=== PATIENT | female | born 1975 | race Caucasian/White ===

== ENCOUNTER 2016-10-19 11:44 | Emergency (ER) | payer MEDICAID ==
[2016-10-19 12:15] VITALS: BP 150/93
--- NOTE | 2016-10-19 14:15 | ER ---
HISTORY OF PRESENT ILLNESS: A 41-year-old lady here with complaints of having headaches for about a week. She states that the headaches are controlled fairly well with ibuprofen, but without the Motrin-type products, she has noticed the headache can be severe. She has been taking 600 mg twice a day. She has also had some episodes of dizziness today and some blurred vision with the dizziness. The patient denies any falls or injuries. She states she has had history of dizziness 2 or 3 times previously. The patient further tells me that she was put on a different medication called trazodone about a week ago and she started getting the headache shortly after starting the trazodone. She also was just started on an antibiotic yesterday for an ear infection. OBJECTIVE: GENERAL APPEARANCE: The patient is awake and alert. She is in no respiratory distress. VITAL SIGNS: Reviewed. Blood pressure is a little elevated at 150/93. HEENT: Eyes, pupils are equal, round, and reactive to light. EOMs are intact. There is minimal lateral nystagmus bilaterally. Ears, TMs are bulging. The right TM is erythematous. The left TM has yellow mucus behind it. Nares are patent. Oral mucous membranes are moist. Tonsils not enlarged or injected. Pharynx not inflamed. NECK: Supple. LUNGS: Clear. SKIN: Warm and dry. NEUROLOGIC: Hallpike maneuver is slightly positive in the first attempt with the patient looking to the right. With the patient looking to the left on the next attempt, she did not have any dizziness at all. LAB AND X-RAY: CBC and CMP were done, lab results are basically normal. Chloride level slightly low at 86. Head CT was next obtained with negative for intracranial hemorrhage or edema. She does have opacifications of the right mastoid air cells correlating with the patient's otitis media. The patient does not have tenderness over the mastoid bone on the right side with palpation or percussion today. DIAGNOSES: Headache with dizziness. Part of this could be due to the trazodone. The dizziness could be some vertigo as well. TREATMENT PLAN: The patient was stopped using the trazodone. She is to continue with ibuprofen or Tylenol as needed for headaches and continue with her antibiotic. She should be following up next week with her primary care provider for recheck, sooner over the weekend if her symptoms should happen to get worse. CRS/MODL /[id number]
--- NOTE | 2016-10-21 08:11 | CT ---
Date of Service: 10/19/16 Clinical Data: Headaches x 1 week. Blurry vision today. UNENHANCED BRAIN CT Multislice acquisition through the brain without IV contrast was performed. No masses or mass effect. No intracranial hemorrhage. No evidence of acute or subacute infarct. There is clouding of mastoid air cells on the right consistent with mastoid disease. No other significant findings. IMPRESSION: No acute intracranial abnormalities. [id number] [facility]
== END 2016-10-19 13:20 | disposition home or self-care (01) ==
LOC: LB.ED 11:44
DX: R51 Headache (principal); R42 Dizziness and giddiness
CPT/HCPCS: 36415; 70450; 80053; 85025; 99284-25

== ENCOUNTER 2016-11-03 19:19 | Observation (INO) | payer MEDICAID ==
[2016-11-03] MEDS: LORazepam 2 MG/ML MDV IVPUSH SCH (22:45)
[2016-11-03] MEDS ORDERED: Haloperidol Lactate 5 MG/ML SDV IM ONE (22:56)
[2016-11-03] MEDS ORDERED: Sodium Chloride 0.9% 1,000 ML IV SCH (23:00)
--- NOTE | 2016-11-03 23:53 | ER ---
HISTORY OF PRESENT ILLNESS: A 41-year-old lady who comes in with mental health issues. She is brought in by her son and her mother. The patient is not answering questions. She is not making eye contact. She sits on the bed and looks down or she lays down and closes her eyes. Family members tell me that she has not been doing well the last 3 or 4 days. She has not been sleeping hardly at all. She has been very active. She has been loud. She has not been eating well. She has not been going to work. 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 The patient does have some history of bipolar issues and alcoholism, but they feel she has been dry as far as alcohol for a while. Current medications include trazodone, ibuprofen, Trileptal, Zyprexa, and Lexapro. Family is not sure if the patient has been taking her medications. OBJECTIVE: GENERAL APPEARANCE: The patient is in no respiratory distress. She is very uncomfortable. She goes between faking that she is sleeping with her eyes closed to jumping up and stating she has to leave. She will be mad. She will start to cry. She will be sad. She will swear and she goes between these different emotions every minute or 2. She tells me she is going to leave. She keeps making statements that "they got me and they will find out, I cannot play this game anymore, it is too hard." The patient does not make eye contact with myself or nursing staff at anytime. Multiple times she tried to leave, but family members persuade her into staying and helps her back to the cot. At this point, Mental Health was consulted and did an evaluation. The patient in acute psychosis, and she needs to be placed on a 72-hour hold. We will attempt to find placement for her at this time, with facility pending at this time. LABORATORY RESULTS: Include a CBC, which is normal. A CMP has a low sodium level of 125, low chloride level of 87. UA is unremarkable. Urine drug screen is positive for THC, ETOH is 0.0. Addendum; While waiting for placement pt was given ativan 2 mg IV. This calmed her enough to sleep. NS was given IV. Her re check NA is 128. CRS/MODL /[id number] JASPAL
[2016-11-04] MEDS: Sodium Chloride 0.9% 1,000 ML IV SCH ×2 (00:13→08:08)
[2016-11-04] MEDS: LORazepam 2 MG/ML MDV IVPUSH SCH ×2 (05:33→11:00)
[2016-11-04] MEDS ORDERED: OXCARBAZEPINE 300 MG PO SCH (08:00)
[2016-11-04] MEDS ORDERED: OLANZAPINE 10 MG PO SCH (08:00)
[2016-11-04] MEDS ORDERED: ESCITALOPRAM 10 MG PO SCH (08:00)
[2016-11-04] MEDS ORDERED: Nicotine 21 MG/24 Hr Patch TRDERM ONE (09:02)
[2016-11-04 13:15] VITALS: BP 136/76
--- NOTE | 2016-11-04 15:28 | PN ---
DATE OF VISIT: 11/04/2016 SUBJECTIVE: A 41-year-old lady who came in last evening in acute psychosis. We are unable to find placement for her for a 72-hour hold last night. Therefore, she was admitted to observation overnight. The patient was given 2 mg of Ativan IV as well as IV fluids bolus of 1 L followed by an ongoing infusion of 125 mL/h. The Ativan calm the patient down to the point where she was able to sleep. She is now more compliant. She does answer questions in a polite fashion by saying ok to every question. She still cries a lot and wants to lay in bed with her eyes closed even when she is not sleeping. This morning, labs were rechecked revealing her sodium level improved. It is now 128 and her chloride is corrected at 93. Arrangements were made for the patient to be admitted for 72-hour hold at [facility] in [place] and the patient will be transferred by ambulance to their facility. She did eat dinner here today quite well. She is still teary-eyed and crying often when she left. She did take some of her medications this morning including Zyprexa and she did have 3 doses of Ativan. The last dose was about 11 o'clock this morning. DIAGNOSIS: Acute psychosis. CRS/MODL /[id number] JASPAL
[2016-11-04] MEDS ORDERED: Non-Formulary Medication 1 Each (Trazodone [Trazodone] 50 MG) PO SCH (20:00)
== END 2016-11-04 12:40 ==
LOC: LB.ED 19:19 → LB.MS 22:43 → UNDOADMOB 22:57 → UNDODISOB 11-04 12:40
PROVIDERS: ADMIT Physician Assistant; ATTEND Physician Assistant
DX: F23 Brief psychotic disorder (principal); Z79.899 Other long term (current) drug therapy
CPT/HCPCS: 36415; 80048; 80053; 80307; 81001; 84443; 85025; 96361; 96372; 96374; 96376; 99285; A0425; A0429; A9270; G0378; G0480; J2060; J7040; J7050

== ENCOUNTER 2016-11-13 11:38 | Emergency (ER) | payer MEDICAID ==
[2016-11-13 12:03] VITALS: BP 145/81
[2016-11-13] MEDS ORDERED: LORazepam 1 MG Tab PO ONE ×2 (12:25→14:12)
[2016-11-13] MEDS ORDERED: LORazepam 1 MG Tab ONE ×2 (12:27→14:13)
--- NOTE | 2016-11-13 16:12 | CR ---
DATE OF SERVICE: 11/13/16 CLINICAL DATA: wheeze PA AND LATERAL CHEST The heart size is normal. The lungs are clear. No pneumothorax. No pleural effusions. No areas of consolidation. The exam is otherwise negative. IMPRESSION: No evidence of acute intrathoracic disease. [id number] [facility]
--- NOTE | 2016-11-13 21:33 | ER ---
CHIEF COMPLAINT: The patient enters with a chief complaint of requesting detox from methamphetamines. HISTORY OF PRESENT ILLNESS: Patient is a 41-year-old woman, recently seen in the ER on 10/30/2016 for acute psychosis. At that time, a 72-hour hold was placed on her. She was sent to [facility] for inpatient care. There they changed her psychiatric medicines. They put her on Cogentin 1 mg at bedtime, lithium 300 mg three tabs at bedtime, Desyrel 100 mg at bedtime, and Latuda 60 mg at supper. Unfortunately, her Latuda was not covered and she did not fill that medication. Her psychiatrist has filed an appeal for it. In the meantime, she is going without medication and seems to have decompensated. Yesterday, her son reports that she was cleaning her room, found a old crack pipe and was smoking her amphetamines. She also uses marijuana and though she denies it, she does use alcohol as well. She has a past medical history of bipolar disease and active hepatitis C that has not been treated. In the emergency room, she was adamant that she was willing to seek detox. We called for her to be admitted for detox and by the time they got back to us, she decided that she did not want to have detox and that she would call [facility] on her own and I did give them the phone number. In the meantime, for her anxiety she received 2 mg of Ativan p.o. in the emergency room. I discharged her on six 1 mg Ativan tablets to take p.r.n. anxiety. She will follow up with her psychiatrist through telemedicine as already scheduled and hopefully she will be able to receive her psychiatric medications soon, so that she does not fall through again. The patient tells me that she is not going to continue with smoking her methamphetamines. She says she has not had alcohol for quite a while and she thinks she will beat the amphetamines as well. Family was not happy that we could not hold the patient against her will as the patient is alert, oriented, and rational. OBJECTIVE: GENERAL: The patient is well developed, well nourished, alert, oriented x3. She is in no acute distress. VITAL SIGNS: Her blood pressure is 145/81, her oxygen saturation on room air is 100%, her pulse is 77 and is regular. SKIN: Shows no rashes or sores. HEENT: Eyes show EOMI, PERRLA. Throat is clear with poor dentition. Ears show normal TMs bilaterally. She does have some inflammation in her right ear canal from aggressive Q-tip use. There is no cody blood present. Nose is clear. HEART: Shows regular rate and rhythm. No murmurs, rubs, or gallops. No S3, no S4. LUNGS: Clear. ABDOMEN: Soft. Bowel sounds x4. No mass, no tenderness. BACK: Shows no CVA or cord tenderness. EXTREMITIES: Show no clubbing, cyanosis, or edema. Her joints are not acutely inflamed. She has full range of motion intact of all extremities. NEURO: Shows cranial nerves II through XII intact. Her exam is nonfocal. She is alert, awake, and appropriate. She did have some diffuse wheezes bilaterally. No accessory muscle use. No rales, no rhonchi, and because of the wheezing we did the chest x-ray. LAB RESULTS: CBC was performed and was normal. Electrolytes were normal. Blood sugar was normal. Liver functions were normal. Drug screen by urine was positive for THC and methamphetamines. Urine was negative for . Chest x-ray was done and was clear. EKG was done and showed normal sinus rhythm, occasional PAC. ASSESSMENT: 1. Bipolar disease. 2. Methamphetamine use. 3. Use of THC. 4. Alcoholism, in remission. 5. Tobacco abuse and wheezing. 6. Hepatitis C, active. PLAN: The patient was discharged to home. She will follow up on her own for inpatient detox. She was given the number for the detox. She will receive Ativan 1 mg p.o. q.6 hours p.r.n., 6 tabs, for any breakthrough anxiety. DARCY/ELIZABETH /[id number] JASPAL
== END 2016-11-13 15:20 | disposition home or self-care (01) ==
LOC: LB.ED 11:38
DX: F31.9 Bipolar disorder, unspecified (principal); F15.90 Other stimulant use, unspecified, uncomplicated; F10.21 Alcohol dependence, in remission; F12.90 Cannabis use, unspecified, uncomplicated; F17.200 Nicotine dependence, unspecified, uncomplicated
CPT/HCPCS: 36415; 71020; 80053; 80307; 81025; 85027; 93005; 99285; A9270

== ENCOUNTER 2017-06-14 10:37 | Emergency (ER) | payer MEDICAID ==
--- NOTE | 2017-06-14 12:43 | ER ---
HISTORY OF PRESENT ILLNESS: A 41-year-old lady who comes in with her son because of problems with drug abuse. He tells me that he thinks she has been using meths for the last several days since approximately Saturday and she is not doing well. She has agreed to going in for detox. The patient tells me that she has not been aggressive, she has been quiet today, and almost like she is in a trans. The patient has not been sick recently. She has not been running a fever. She was just seen yesterday in the clinic in [facility] with Telemedicine and was cooperative at that time. OBJECTIVE: GENERAL APPEARANCE: The patient is awake, she is alert, she has her head down, she is not answering questions at this time. No respiratory distress. The patient occasionally will answer a question, most of the time she does not. VITAL SIGNS: Reviewed, they are normal. CARDIAC: Heart sounds distinct without murmurs. LUNGS: Clear. SKIN: Warm and dry. LABORATORY DATA: Labs today include a CBC, which is normal. Comprehensive metabolic panel was also unremarkable. ETOH is negative. Urine tox screen is pending. DIAGNOSIS: Drug abuse with possible early stages of withdrawal. TREATMENT PLAN: With coaching, the patient was able to get up and give us a urine sample very recently. Arrangements have been made for the patient to go to a detox center and she will be transported by ground ambulance to this facility today. Over the course of monitoring the patient for about an hour and a half, she is becoming more responsive, she is not aggressive, but in light of past behavior and potential for an increase in aggressiveness, she will be given Ativan 2 mg IM before leaving our facility. KAILEY/MODL /[id number]
[2017-06-14] MEDS ORDERED: LORazepam 2 MG/ML MDV IM ONE (12:48)
[2017-06-14 13:23] VITALS: BP 138/81
[2017-06-14] MEDS ORDERED: LORazepam 2 MG/ML MDV ONE (13:30)
== END 2017-06-14 15:00 ==
LOC: LB.ED 10:37
DX: F19.10 Other psychoactive substance abuse, uncomplicated (principal)
CPT/HCPCS: 36415; 80053; 80307; 85025; 96372; 99284; G0480; J2060

== ENCOUNTER 2019-03-31 12:45 | Emergency (ER) | payer MEDICAID ==
[2019-03-31 13:39] VITALS: BP 119/88; PULSE 85
[2019-03-31] MEDS ORDERED: LORazepam 2 MG/ML SDV IVPUSH ONE (14:00)
[2019-03-31] MEDS ORDERED: LORazepam 2 MG/ML SDV ONE (14:11)
--- NOTE | 2019-03-31 14:47 | EDM.PDOC ---
ED HPI GENERAL MEDICAL PROBLEM - General Time Seen by Provider: 03/31/19 12:50 Source of Information: Reports: Patient History Limitations: Reports: No Limitations - History of Present Illness INITIAL COMMENTS - FREE TEXT/NARRATIVE: According to patient she claims she has been weak and feeling short of breath since yesterday. Shortness of breath started yesterday and has progressively got worse today. No chest pain or wheezing. Pt is very anxious and hyperventilating in the emergency room. Her SPO2 is 100%.Feels weak and tired. No fever or chills. No nausea or vomiting. No diarrhea. Pt has been progressively loosing weight over the past few months now. She was diagnosed with left sided infective neck mass, for which she has been on IM Rocephin daily at the hospital. Onset Date: 03/31/19 Onset Time: 13:00 Severity: Moderate Improves with: Reports: None Worsens with: Reports: None Associated Symptoms: Reports: Shortness of Breath, Weakness. Denies: Confusion , Chest Pain, Cough, Diaphoresis, Fever/Chills, Nausea/Vomiting, Rash, Seizure, Syncope - Related Data Allergies Allergy/AdvReac Type Severity Reaction Status Date / Time No Known Allergies Allergy Verified 03/13/19 15:31 Home Meds: Home Meds [place] Carbonate 900 mg PO DAILY 11/13/16 [History] Ibuprofen 600 mg PO TID PRN 06/14/17 [History] Lurasidone HCl [Latuda] 60 mg PO DAILY 06/14/17 [History] OLANZapine [Olanzapine] 20 mg PO BEDTIME 06/14/17 [History] OXcarbazepine [Oxcarbazepine] 900 mg PO BID 06/14/17 [History] Sofosbuvir/Velpatasvir [Epclusa 400 mg-100 mg Tablet] 100 - 400 mg PO DAILY [History] traZODone 150 mg PO BEDTIME MDD 300mg 06/14/17 [History] Past Medical History HEENT History: Reports: Other (See Below) Other HEENT History: recent ear infection Gastrointestinal History: Reports: Chronic Constipation, 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: Psychiatric History: Reports: Anxiety, Bipolar, Depression - Infectious Disease History Infectious Disease History: Reports: Hepatitis C - Past Surgical History Other HEENT Surgeries/Procedures: Patient not answering questions GI Surgical History: Reports: Bariatric Procedure Female Surgical History: Reports: Section Musculoskeletal Surgical History: Reports: Other (See Below) Social & Family History - Family History Family Medical History: Noncontributory - Caffeine Use Caffeine Use: Reports: Coffee ED ROS GENERAL - Review of Systems Review Of Systems: See Below Constitutional: Denies: Fever, Chills HEENT: Denies: Ear Pain, Rhinitis, Throat Pain Respiratory: Reports: Shortness of Breath. Denies: Pleuritic Chest Pain, Cough , Sputum Cardiovascular: Denies: Chest Pain, Lightheadedness Endocrine: Denies: Fatigue GI/Abdominal: Denies: Abdominal Pain, Nausea, Vomiting : Denies: Dysuria, Frequency Musculoskeletal: Denies: Joint Pain, Joint Swelling Skin: Denies: Bruising, Pruritis, Rash Neurological: Denies: Confusion, Dizziness, Headache, Numbness, Tingling Psychiatric: Denies: Agitation, Anxiety, Confusion, Cravings, Depression ED EXAM, GENERAL - Physical Exam Exam: See Below Exam Limited By: No Limitations General Appearance: Alert, WD/WN, Anxious Ears: Normal External Exam, Normal Canal, Hearing Grossly Normal, Normal TMs Ear Exam: Bilateral Ear: Auricle Normal, Canal Normal, TM normal Nose: Normal Inspection, Normal Mucosa, No Blood Throat/Mouth: Normal Inspection, Normal Lips, Normal Teeth, Normal Gums, Normal Oropharynx, Normal Voice, No Airway Compromise Head: Atraumatic, Normocephalic Neck: Supple, Non-Tender, Full Range of Motion, Other (There is a obvious firm to hard 2cm by 1cm irregulr mass felt at the right angle of the mandible.) Respiratory/Chest: No Respiratory Distress, Lungs Clear, Normal Breath Sounds, No Accessory Muscle Use, Chest Non-Tender Cardiovascular: Normal Peripheral Pulses, Regular Rate, Rhythm, No Edema, No Gallop, No JVD, No Murmur, No Rub GI/Abdominal: Normal Bowel Sounds, Soft, Non-Tender, No Organomegaly, No Distention, No Abnormal Bruit, No Mass Back Exam: Normal Inspection, Full Range of Motion, NT Extremities: Normal Inspection, Normal Range of Motion, Non-Tender, Normal Capillary Refill, No Pedal Edema Neurological: Alert, Oriented, CN II-XII Intact, Normal Cognition Psychiatric: Anxious Skin Exam: Warm, Intact Course - Vital Signs Text/Narrative:: Pt presents to emergency room with shortness of breath since yesterday. No fever or chills. She has been chronically loosing weight over past few months. Pt has had right sided neck pain and has been treated with Rocpehin outpatient for the past 2 wks now. On clinical exam she does have a right upper neck firm mild tender mass just inferior to the right angle of mandible. Pt is very anxious and hyperventilating in the emergency room.It is hard to make decision as she is hyperventilating or has acute sepsis form the neck infection. Hence, baseline LAbs were ordered. Her CBC show elevated white count of 20K with 92% neutrophils. Blood culture and lactic acid was ordered to pursue infective pathology. Also CT neck and chest were ordered. Her D-dimer is mild elevated at 600, which might be inflammatory or reactive change, but considering her Shortness of breath Chest Ct was ordered without contrast due to her Low GFR. Her CMP stable other then her Creat of 1.87. Troponin is negative. Pt's Lactic acid is elevated at 2.75. Her CT neck shows 3 cm right para- pharyngeal mass,and Chest CT shows b/l pneumonia. I was discussing the findings with patient and her family. Pt started to appear lethargic and her breath sounds started to slow down and shallow. Apparently patient started to loose consciousness and was only arousable to deep pain stimulus. At which point it was planned was RSI. Pt was intubated with first attempt using Boogie. 7 number ET tube was intubated to 24 cms. Good Colorimeter changes. Equal breath sound. Post intubation Xray shows tip at gume. Pt did receive 1 gm of vancomycin. I did contact Dr. Goff the buck swamper at [facility] and discuss patient with her. Dr. Goff requested zosyn 3.325gm IV one dose. which ws ordered. [facility] air ambulance ready for transfer. Pt has been transferred in hemodynamically stable condition to [facility] . Further care per Dr. Goff. Last Recorded V/S: Last Vital Signs Temp 98.2 F 03/31/19 13:36 Pulse 85 03/31/19 13:36 Resp 60 H 03/31/19 13:36 BP 119/88 03/31/19 13:36 Pulse Ox 100 03/31/19 13:36 - Orders/Labs/Meds Orders: Active Orders 24 hr Category Date Time Status Chest wo Cont [CT] Stat Exams 03/31/19 13:09 Ordered Soft Tissue Neck wo Cont [CT] Stat Exams 03/31/19 13:08 Taken CULTURE BLOOD [BC] Stat Lab 03/31/19 14:15 Received LACTIC ACID [CHEM] Stat Lab 03/31/19 13:20 Received Labs: Laboratory Tests 03/31/19 03/31/19 03/31/19 Range/Units 13:20 13:20 13:20 WBC 20.0 H D (4.0-11.0) K/uL RBC 2.64 L (3.80-5.80) M/uL Hgb 10.6 L (11.5-16.5) g/dL Hct 30.9 L (37.0-47.0) % MCV 117 H (76-96) fL MCH 40.2 H (27.0-32.0) pg MCHC 34.3 (31.0-35.0) g/dL RDW 15.9 (11.0-16.0) % Plt Count 232 D (150-500) K/uL MPV 10.4 H (6.0-10.0) fL Neut % (Auto) 92.1 H (45.0-70.0) % Lymph % (Auto) 2.9 L (20.0-40.0) % [place] % (Auto) 4.9 (3.0-10.0) % Eos % (Auto) 0.0 L (1.0-5.0) % Baso % (Auto) 0.1 (0.0-0.5) % Neut # (Auto) 18.46 H (2.00-7.50) K/uL Lymph # (Auto) 0.58 L (1.50-4.00) K/uL [place] # (Auto) 0.98 H (0.20-0.80) K/uL Eos # (Auto) 0.00 L (0.04-0.40) K/uL Baso # (Auto) 0.02 (0.02-0.10) K/uL D-Dimer, Quantitative 608 H (0-400) ng/mL Sodium 135 L (136-145) mmol/L Potassium 3.5 (3.5-5.1) mmol/L Chloride 92 L (98-107) mmol/L Carbon Dioxide 6.6 L* D (21.0-32.0) mmol/L Anion Gap 39.9 H (5.0-15.0) mmol/L BUN 10 D (8-26) mg/dL Creatinine 1.87 H D (0.55-1.02) mg/dL Est Cr Clr Drug Dosing 33.68 mL/min Estimated GFR (MDRD) 30 L (>60) MLS/MIN BUN/Creatinine Ratio 5.3 L (6-25) Glucose 120 H D (74-100) mg/dL Calcium 9.3 (8.5-10.1) mg/dL Total Bilirubin 1.0 (0.0-1.0) mg/dL AST 81 H (15-37) U/L ALT 49 (12-78) U/L Alkaline Phosphatase 230 H (46-116) U/L Total Protein 7.7 (6.4-8.2) g/dL Albumin 3.5 (3.4-5.0) g/dL Globulin 4.2 (2.2-4.2) g/dL Albumin/Globulin Ratio 0.8 (0.8-2.0) Meds: Medications Discontinued Medications Generic Name Dose Route Start Last Admin Trade Name Freq PRN Reason Stop Dose Admin Lorazepam Confirm 03/31/19 14:11 Ativan Administered 03/31/19 14:12 Dose 2 mg .ROUTE .STK-MED ONE Departure - Departure Time of Disposition: 16:10 Disposition: DC/Tfer to Acute Hospital 02 Condition: Fair Clinical Impression: Parapharyngeal space mass, Pneumonia of both lower lobes, Respiratory failure, Sepsis - Discharge Information *PRESCRIPTION DRUG MONITORING PROGRAM REVIEWED*: Not Applicable *COPY OF PRESCRIPTION DRUG MONITORING REPORT IN PATIENT LILLY: Not Applicable Referrals: PCP,None [Primary Care Provider] - - Problem List & Annotations (1) Parapharyngeal space mass SNOMED Code(s): 384933947 Code(s): R22.1 - LOCALIZED SWELLING, MASS AND LUMP, NECK Status: Acute Current Visit: Yes (2) Pneumonia of both lower lobes SNOMED Code(s): 623255698, 767716232 Code(s): J18.1 - LOBAR PNEUMONIA, UNSPECIFIED ORGANISM Status: Acute Current Visit: Yes (3) Respiratory failure SNOMED Code(s): 320707146 Code(s): J96.90 - RESPIRATORY FAILURE, UNSP, UNSP W HYPOXIA OR HYPERCAPNIA Status: Acute Current Visit: Yes (4) Sepsis SNOMED Code(s): 78061692 Code(s): A41.9 - SEPSIS, UNSPECIFIED ORGANISM Status: Acute Current Visit : Yes - Problem List Review Problem List Initiated/Reviewed/Updated: Yes - My Orders Last 24 Hours: My Active Orders 03/31/19 13:08 Soft Tissue Neck wo Cont [CT] Stat 03/31/19 13:09 Chest wo Cont [CT] Stat 03/31/19 13:20 LACTIC ACID [CHEM] Stat 03/31/19 14:15 CULTURE BLOOD [BC] Stat - Assessment/Plan Last 24 Hours: My Active Orders 03/31/19 13:08 Soft Tissue Neck wo Cont [CT] Stat 03/31/19 13:09 Chest wo Cont [CT] Stat 03/31/19 13:20 LACTIC ACID [CHEM] Stat 03/31/19 14:15 CULTURE BLOOD [BC] Stat Assessment:: Sepsis B/l pneumonia Right parapharyngeal mass Respiratory failure Plan: Pt presents to emergency room with shortness of breath since yesterday. No fever or chills. She has been chronically loosing weight over past few months. Pt has had right sided neck pain and has been treated with Rocpehin outpatient for the past 2 wks now. On clinical exam she does have a right upper neck firm mild tender mass just inferior to the right angle of mandible. Pt is very anxious and hyperventilating in the emergency room.It is hard to make decision as she is hyperventilating or has acute sepsis form the neck infection. Hence, baseline LAbs were ordered. Her CBC show elevated white count of 20K with 92% neutrophils. Blood culture and lactic acid was ordered to pursue infective pathology. Also CT neck and chest were ordered. Her D-dimer is mild elevated at 600, which might be inflammatory or reactive change, but considering her Shortness of breath Chest Ct was ordered without contrast due to her Low GFR. Her CMP stable other then her Creat of 1.87. Troponin is negative. Pt's Lactic acid is elevated at 2.75. Her CT neck shows 3 cm right para- pharyngeal mass,and Chest CT shows b/l pneumonia. I was discussing the findings with patient and her family. Pt started to appear lethargic and her breath sounds started to slow down and shallow. Apparently patient started to loose consciousness and was only arousable to deep pain stimulus. At which point it was planned was RSI. Pt was intubated with first attempt using Boogie. 7 number ET tube was intubated to 24 cms. Good Colorimeter changes. Equal breath sound. Post intubation Xray shows tip at gume. Pt did receive 1 gm of vancomycin. I did contact Dr. Goff the buck swamper at [facility] and discuss patient with her. Dr. Goff requested zosyn 3.325gm IV one dose. which ws ordered. [facility] air ambulance ready for transfer. Pt has been transferred in hemodynamically stable condition to [facility] . Further care per Dr. Goff.
[2019-03-31] MEDS ORDERED: Sodium Chloride 0.9% 1,000 ML IV SCH (15:15)
[2019-03-31] MEDS ORDERED: Succinylcholine 200 MG/10 ML MDV IV SCH (15:20)
[2019-03-31] MEDS ORDERED: Midazolam 1 MG/ML 10 ML MDV IVPUSH ONE (15:20)
[2019-03-31] MEDS ORDERED: Propofol 200 MG/20 ML SDV ONE (15:30)
--- NOTE | 2019-03-31 15:54 | CT ---
DATE OF SERVICE: 03/31/2019 CLINICAL DATA: Neck mass with shortness of breath Unenhanced neck CT: Multislice acquisition through the neck without IV contrast was performed. Comparison is made to prior unenhanced neck CT dated 03/09/2019. Motion artifact degrades image quality. The parotid glands are symmetric and appears normal. The submandibular glands are symmetric and appear normal. The thyroid gland appears normal. There is a soft tissue mass in the right parapharyngeal space lateral to the nasopharynx and soft palate. It was not present on prior study. It measures 3 cm axially. This most likely represents adenopathy. Infectious or inflammatory processes should be considered. Malignant processes cannot be excluded. No other significant findings. The visualized paranasal sinuses are clear. No osseous abnormalities. The visualized lung apices are clear. Impression: Abnormal exam. See above MTDD
--- NOTE | 2019-03-31 18:17 | CR ---
Date of Service: 03/31/19 Clinical Data: CHECK TUBE PLACEMENT AP PORTABLE CHEST: Comparison is made to a prior exam dated 02/10/19. There is an endotracheal tube in place with its distal tip just above the gume. The heart size is normal. There are poorly defined ground-glass opacities in both lower lungs and in the right upper lung suspicious for pneumonia. No pneumothorax. No pleural effusions. [id number] [facility]
--- NOTE | 2019-04-01 07:32 | CT ---
Date of Service: 03/31/2019 Clinical Data: Shortness of breath. UNENHANCED CHEST CT: Multislice acquisition through the chest without IV contrast was performed. Motion artifact degrades image quality. There are poorly defined ground glass opacities noted in both right upper lobes , within the right middle lobe, and in both lower lobes consistent with pneumonia/pneumonitis. No pleural effusion. No pneumothorax. The heart size is normal. There is mild prominence of the ascending aorta. It measures 3.7 cm in diameter. No hilar or mediastinal adenopathy. The thyroid gland appears enlarged. No other significant findings. [id number] [facility]
== END 2019-03-31 16:10 ==
LOC: LB.ED 12:45
DX: A41.9 Sepsis, unspecified organism (principal); R65.20 Severe sepsis without septic shock; J96.90 Respiratory failure, unspecified, unspecified whether with hypoxia or hypercapnia; R22.1 Localized swelling, mass and lump, neck; J18.1 Lobar pneumonia, unspecified organism; F41.9 Anxiety disorder, unspecified; F32.9 Major depressive disorder, single episode, unspecified; Z79.899 Other long term (current) drug therapy
CPT/HCPCS: 31500; 36415; 70490; 71045; 71250; 80053; 83605; 84484; 85025; 85379; 87040; 96361; 96365; 96375; 99285-25; J0330; J2060; J2250; J2543; J2704; J3370; J3490; J7030; J7050

== ENCOUNTER 2019-04-19 13:50 | Emergency (ER) | payer MEDICAID ==
[2019-04-19] MEDS ORDERED: Lidocaine 4% Top Soln 50 ML Bottle ONE (14:20)
--- NOTE | 2019-04-19 15:09 | EDM.PDOC ---
ED HPI GENERAL MEDICAL PROBLEM - General Chief Complaint: ENT Problem Stated Complaint: sore mouth Time Seen by Provider: 04/19/19 14:00 Source of Information: Reports: Patient History Limitations: Reports: No Limitations - History of Present Illness INITIAL COMMENTS - FREE TEXT/NARRATIVE: Pt is a 43 year old female who is on Iv antibiotic therapy for parapharyngeal abscess presently. She presents to emergency room with painful mouth sore. She claims the sore are behind her lips , tongue and buccal cavity. They are painful and sting when she tires to eat . Even hurts to touch them with her tongue. No fever or chills. No swelling or painful swallowing. pt has been treated for oral thrush with nystatin for past 1 wk now. Onset: Gradual Onset Date: 04/16/19 Location: Reports: Other (mouth) Quality: Reports: Ache Severity: Moderate Improves with: Reports: None Worsens with: Reports: None Associated Symptoms: Denies: Confusion, Chest Pain, Cough, Diaphoresis, Fever/ Chills, Nausea/Vomiting, Rash, Seizure, Weakness - Related Data Allergies Allergy/AdvReac Type Severity Reaction Status Date / Time No Known Allergies Allergy Verified 03/13/19 15:31 Home Meds: Home Meds [place] Carbonate 900 mg PO DAILY 11/13/16 [History] Ibuprofen 600 mg PO TID PRN 06/14/17 [History] Lurasidone HCl [Latuda] 60 mg PO DAILY 06/14/17 [History] OLANZapine [Olanzapine] 20 mg PO BEDTIME 06/14/17 [History] OXcarbazepine [Oxcarbazepine] 900 mg PO BID 06/14/17 [History] Sofosbuvir/Velpatasvir [Epclusa 400 mg-100 mg Tablet] 100 - 400 mg PO DAILY [History] traZODone 150 mg PO BEDTIME MDD 300mg 06/14/17 [History] Past Medical History HEENT History: Reports: Other (See Below) Other HEENT History: recent ear infection Gastrointestinal History: Reports: Chronic Constipation, 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: Psychiatric History: Reports: Anxiety, Bipolar, Depression - Infectious Disease History Infectious Disease History: Reports: Hepatitis C - Past Surgical History Other HEENT Surgeries/Procedures: Patient not answering questions GI Surgical History: Reports: Bariatric Procedure Female Surgical History: Reports: Section Musculoskeletal Surgical History: Reports: Other (See Below) Social & Family History - Family History Family Medical History: Noncontributory - Caffeine Use Caffeine Use: Reports: Coffee ED ROS GENERAL - Review of Systems Review Of Systems: See Below Constitutional: Denies: Fever, Chills HEENT: Denies: Ear Discharge, Ear Pain, Rhinitis, Throat Pain, Throat Swelling, Vertigo, Vision Change Respiratory: Denies: Cough, Sputum Cardiovascular: Denies: Chest Pain, Lightheadedness GI/Abdominal: Denies: Abdominal Pain, Nausea, Vomiting : Denies: Dysuria, Frequency Musculoskeletal: Denies: Joint Pain, Joint Swelling Skin: Denies: Bruising, Pruritis, Rash ED EXAM, GENERAL - Physical Exam Exam: See Below Exam Limited By: No Limitations General Appearance: Alert, WD/WN, Mild Distress Eye Exam: Bilateral Eye: EOMI, PERRL Ears: Normal External Exam, Normal Canal, Hearing Grossly Normal, Normal TMs Ear Exam: Bilateral Ear: Auricle Normal, Canal Normal, TM normal Nose: Normal Inspection, Normal Mucosa, No Blood Throat/Mouth: Normal Gums, Other (Pt has developed painful aphthous ulcers over the posterior aspect of the lip, tongue and the buccal mucosa. Snesitive to touch.) Head: Atraumatic, Normocephalic Neck: Normal Inspection, Supple, Non-Tender, Full Range of Motion Respiratory/Chest: No Respiratory Distress, Lungs Clear, Normal Breath Sounds, No Accessory Muscle Use, Chest Non-Tender Cardiovascular: Normal Peripheral Pulses, Regular Rate, Rhythm, No Edema, No Gallop, No JVD, No Murmur, No Rub Course - Vital Signs Text/Narrative:: Pt reassured that she has developed aphthous ulcers of the mouth. this might be related to her high dose of antibiotics, chronic malnutrition, or low Vit C. These should resolve without any complications. Advised Vit C 1000mg daily for next 10 days. Also did apply Xylocaine viscus over the lesion and pain resolved. Pt reassured,advised to use benzocaine gel before meals to prevent pain. Could use it every 2-3 hrs as needed only. Departure - Departure Time of Disposition: 14:30 Disposition: Home, Self-Care 01 Condition: Fair Clinical Impression: Aphthous ulcer of mouth - Discharge Information *PRESCRIPTION DRUG MONITORING PROGRAM REVIEWED*: Not Applicable *COPY OF PRESCRIPTION DRUG MONITORING REPORT IN PATIENT LILLY: Not Applicable Instructions: Oral Thrush, Adult Forms: ED Department Discharge Care Plan Goals: Take Vitamin C 1000 mg daily for 10 days. Benzacaine oragel over the counter on sore spots for discomfort. (use viscous lidocain Keep on with swish and swallow as directed. - Problem List & Annotations (1) Aphthous ulcer of mouth SNOMED Code(s): 095653572 Code(s): K12.0 - RECURRENT ORAL APHTHAE Status: Acute Current Visit: Yes - Problem List Review Problem List Initiated/Reviewed/Updated: Yes - Assessment/Plan Assessment:: Aphthous ulcers of mouth Plan: Pt reassured that she has developed aphthous ulcers of the mouth. this might be related to her high dose of antibiotics, chronic malnutrition, or low Vit C. These should resolve without any complications. Advised Vit C 1000mg daily for next 10 days. Also did apply Xylocaine viscus over the lesion and pain resolved. Pt reassured,advised to use benzocaine gel before meals to prevent pain. Could use it every 2-3 hrs as needed only.
[2019-04-19 18:03] VITALS: BP 122/87; PULSE 81
== END 2019-04-19 14:40 | disposition home or self-care (01) ==
LOC: LB.ED 13:50
DX: K12.0 Recurrent oral aphthae (principal); F41.9 Anxiety disorder, unspecified; F32.9 Major depressive disorder, single episode, unspecified; Z79.899 Other long term (current) drug therapy
CPT/HCPCS: 99282; A9270

== ENCOUNTER 2019-06-04 10:36 | Outpatient (CLI) | payer MEDICAID ==
[2019-06-04] MEDS ORDERED: HEPATITIS B VIRUS VACCINE 20 MCG/ML IM ONE (11:01)
== END 2019-06-04 11:11 | disposition home or self-care (01) ==
LOC: LB.ACU 10:36
PROVIDERS: ATTEND Nurse Practitioner
DX: Z23 Encounter for immunization (principal)
CPT/HCPCS: 90746; G0010

== ENCOUNTER 2019-06-11 11:48 | Day surgery (SDC) | payer MEDICAID ==
[2019-06-11] MEDS ORDERED: Metoclopramide 10 MG/2 ML SDV IV PRN (12:00)
[2019-06-11] MEDS ORDERED: Sodium Chloride 0.9% 1,000 ML IV SCH (12:00)
[2019-06-11 12:50] VITALS: BP 123/81; PULSE 81
== END 2019-06-11 15:40 | disposition home or self-care (01) ==
LOC: LB.SDS 11:48
PROVIDERS: ATTEND Surgery
DX: Z12.11 Encounter for screening for malignant neoplasm of colon (principal); Z53.09 Procedure and treatment not carried out because of other contraindication
CPT/HCPCS: J7030

== ENCOUNTER 2019-07-22 14:01 | Emergency (ER) | payer MEDICAID ==
[2019-07-22 14:24] VITALS: BP 118/84; PULSE 67
--- NOTE | 2019-07-22 15:45 | EDM.PDOC ---
ED HPI GENERAL MEDICAL PROBLEM - General Chief Complaint: General Stated Complaint: peripheral and abdominal edema Time Seen by Provider: 07/22/19 14:50 Source of Information: Reports: Patient History Limitations: Reports: No Limitations - History of Present Illness INITIAL COMMENTS - FREE TEXT/NARRATIVE: This is a 43yo F here for increased swelling of the lower legs, increased weight gain of 17 lbs and increased abdominal swelling. She notes some shortness of breath on deep breaths. She has been having issues prior of weight loss and what appears to be malnutrition or failure to thrive. Onset: Gradual Duration: Day(s): Location: Reports: Lower Extremity, Left, Lower Extremity, Right Severity: Moderate Improves with: Reports: None Worsens with: Reports: None Associated Symptoms: Reports: Shortness of Breath Generalized Pain Score (Numeric/FACES): 7 - Related Data Allergies Allergy/AdvReac Type Severity Reaction Status Date / Time No Known Allergies Allergy Verified 06/10/19 16:21 Home Meds: Home Meds [place] Carbonate 900 mg PO DAILY 11/13/16 [History] Ibuprofen 600 mg PO TID PRN 06/14/17 [History] Lurasidone HCl [Latuda] 60 mg PO DAILY 06/14/17 [History] OLANZapine [Olanzapine] 20 mg PO BEDTIME 06/14/17 [History] OXcarbazepine [Oxcarbazepine] 900 mg PO BID 06/14/17 [History] Sofosbuvir/Velpatasvir [Epclusa 400 mg-100 mg Tablet] 100 - 400 mg PO DAILY [History] traZODone 150 mg PO BEDTIME MDD 300mg 06/14/17 [History] Bacitracin Zinc 1 each TP BID 06/10/19 [History] Ferrous Sulfate 325 mg PO DAILY 06/10/19 [History] Folic Acid 1 mg PO DAILY 06/10/19 [History] L.acidoph,Paracasei, B.lactis [Probiotic] 1 each PO DAILY 06/10/19 [History] Pantoprazole Sodium [Protonix] 40 mg PO DAILY 06/10/19 [History] Vit B12/Folic Acid/B6/Aa No.15 [Glycotrol] 1 each PO DAILY 06/10/19 [History] risperiDONE 3 mg PO DAILY 06/10/19 [History] Past Medical History HEENT History: Reports: Other (See Below) Other HEENT History: recent ear infection Gastrointestinal History: Reports: Chronic Constipation, 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: Psychiatric History: Reports: Anxiety, Bipolar, Depression - Infectious Disease History Infectious Disease History: Reports: Hepatitis C - Past Surgical History Other HEENT Surgeries/Procedures: Patient not answering questions GI Surgical History: Reports: Bariatric Procedure Female Surgical History: Reports: Section Musculoskeletal Surgical History: Reports: Other (See Below) Social & Family History - Family History Family Medical History: Noncontributory - Caffeine Use Caffeine Use: Reports: None ED ROS GENERAL - Review of Systems Review Of Systems: Comprehensive ROS is negative, except as noted in HPI. ED EXAM, GENERAL - Physical Exam Exam: See Below Exam Limited By: No Limitations General Appearance: Alert, WD/WN, No Apparent Distress Ears: Normal External Exam Nose: Normal Inspection Throat/Mouth: Normal Inspection Head: Atraumatic, Normocephalic Neck: Normal Inspection, Supple, Non-Tender Respiratory/Chest: No Respiratory Distress, Lungs Clear, Normal Breath Sounds Cardiovascular: Normal Peripheral Pulses, Regular Rate, Rhythm Peripheral Pulses: 2+: Dorsalis Pedis (L), Dorsalis Pedis (R) GI/Abdominal: Normal Bowel Sounds, Distended, Other (tympanic) Extremities: Pedal Edema Psychiatric: Normal Affect, Normal Mood Skin Exam: Warm, Dry, Intact, Pallor Course - Vital Signs Last Recorded V/S: Last Vital Signs Temp 36.4 C 07/22/19 14:16 Pulse 67 07/22/19 14:16 Resp 16 07/22/19 14:16 BP 118/84 07/22/19 14:16 Pulse Ox 100 07/22/19 14:16 - Orders/Labs/Meds Labs: Laboratory Tests 07/22/19 07/22/19 Range/Units 14:24 14:24 WBC 3.6 L (4.0-11.0) K/uL RBC 3.08 L (3.80-5.80) M/uL Hgb 11.1 L D (11.5-16.5) g/dL Hct 33.6 L D (37.0-47.0) % MCV 109 H (76-96) fL MCH 36.0 H D (27.0-32.0) pg MCHC 33.0 (31.0-35.0) g/dL RDW 21.0 H (11.0-16.0) % Plt Count 105 L D (150-500) K/uL MPV 10.7 H (6.0-10.0) fL Neut % (Auto) 65.8 (45.0-70.0) % Lymph % (Auto) 22.4 (20.0-40.0) % [place] % (Auto) 11.2 H (3.0-10.0) % Eos % (Auto) 0.3 L (1.0-5.0) % Baso % (Auto) 0.3 (0.0-0.5) % Neut # (Auto) 2.35 (2.00-7.50) K/uL Lymph # (Auto) 0.80 L (1.50-4.00) K/uL [place] # (Auto) 0.40 (0.20-0.80) K/uL Eos # (Auto) 0.01 L (0.04-0.40) K/uL Baso # (Auto) 0.01 L (0.02-0.10) K/uL Sodium 138 (136-145) mmol/L Potassium 4.8 (3.5-5.1) mmol/L Chloride 104 (98-107) mmol/L Carbon Dioxide 31.7 D (21.0-32.0) mmol/L Anion Gap 7.1 (5.0-15.0) mmol/L BUN 6 L D (8-26) mg/dL Creatinine 0.66 D (0.55-1.02) mg/dL Est Cr Clr Drug Dosing TNP Estimated GFR (MDRD) > 60 (>60) MLS/MIN BUN/Creatinine Ratio 9.1 (6-25) Glucose 51 L D (74-100) mg/dL Calcium 7.5 L (8.5-10.1) mg/dL Total Bilirubin 0.7 D (0.0-1.0) mg/dL AST 24 (15-37) U/L ALT 29 (12-78) U/L Alkaline Phosphatase 134 H (46-116) U/L Total Protein 5.6 L (6.4-8.2) g/dL Albumin 2.0 L (3.4-5.0) g/dL Globulin 3.6 (2.2-4.2) g/dL Albumin/Globulin Ratio 0.6 L (0.8-2.0) Departure - Departure Time of Disposition: 15:38 Disposition: Home, Self-Care 01 Condition: Fair Clinical Impression: Failure to thrive in adult, Edema due to hypoalbuminemia, Hx of gastric bypass - Discharge Information Instructions: High-Protein and High-Calorie Diet Referrals: PCP,None [Primary Care Provider] - Forms: ED Department Discharge Additional Instructions: Call the clinic in the morning and let Abiola or the incident response lead know that he requested for her to be seen on the . You will more than likely be admitted to obs tomorrow for albumin and a possible paracentesis. You currently have no fluid in your lungs, but there is fluid in your abdomen. You are not absorbing the nutrients and Dr. Tanner will be looking at the [employer] information from the gastric bypass. supervisor [employer] some gatorade, probiotics, beans, nuts...more natural home cooked meals. Nutramagin Baby formula has broken down proteins already that are easier for your body to absorb. Enspire is also another one. "Partially broken down protein " or "hydrolyzed" Sepsis Event Note - Evaluation Sepsis Screening Result: No Definite Risk - Focused Exam Vital Signs: Vital Signs Temp Pulse Resp BP Pulse Ox 07/22/19 14:16 36.4 C 67 16 118/84 100 Date Exam was Performed: 07/22/19 Time Exam was Performed: 15:38 - Problem List & Annotations (1) Edema due to hypoalbuminemia SNOMED Code(s): 373539456 Code(s): R60.9 - EDEMA, UNSPECIFIED; E88.09 - OTH DISORDERS OF PLASMA- PROTEIN METABOLISM, NEC Status: Acute Priority: High Current Visit: Yes (2) Failure to thrive in adult SNOMED Code(s): 395290041 Code(s): R62.7 - ADULT FAILURE TO THRIVE Status: Acute Priority: High Current Visit: Yes (3) Hx of gastric bypass SNOMED Code(s): 144996941 Code(s): Z98.84 - BARIATRIC SURGERY STATUS Status: Acute Priority: High Current Visit: Yes - Problem List Review Problem List Initiated/Reviewed/Updated: Yes - Assessment/Plan Plan: Patient to f/u in clinic for further discussion and management. Discussed setup for feeding tube. Discussed admission for hydration and albumin. Discussed limited benefits of a short lasting albumin for protein. Discussed low albumin and other avenues of management. Patient wants to consider reversal of her gastric bypass - we will have to f/u records and refer to surgery.
== END 2019-07-22 15:35 | disposition home or self-care (01) ==
LOC: LB.ED 14:01
DX: R62.7 Adult failure to thrive (principal); E88.09 Other disorders of plasma-protein metabolism, not elsewhere classified; R60.0 Localized edema; Z79.899 Other long term (current) drug therapy
CPT/HCPCS: 36415; 80053; 85025; 99284

== ENCOUNTER 2019-07-23 10:15 | Observation (INO) | payer MEDICAID ==
[2019-07-23] MEDS ORDERED: Albumin 25% 200 ML IV ONE (10:29)
[2019-07-23] MEDS ORDERED: Peripheral TPN 1 ML IV SCH (10:30)
--- NOTE | 2019-07-23 10:34 | PCM.HP.2 ---
H&P History of Present Illness - General Date of Service: 07/23/19 Admit Problem/Dx: Admission Diagnosis/Problem Admission Diagnosis/Problem Failure to thrive in adult Source of Information: Patient, Old Records History Limitations: Reports: No Limitations - History of Present Illness Initial Comments - Free Text/Narative: This is a 43yo F with failure to thrive and increasing weakness, muscular deconditioning and cachetic appearance admitted for management of her weakness, her hypoalbuminemia, failure to thrive and further management. Onset of Symptoms: Reports: Gradual Duration of Symptoms: Reports: Chronic (months), Getting Worse Location: Reports: Generalized Severity: Severe Improves with: Reports: None Worsens with: Reports: None Associated Symptoms: Reports: Weakness - Related Data Allergies/Adverse Reactions: Allergies Allergy/AdvReac Type Severity Reaction Status Date / Time No Known Allergies Allergy Verified 06/10/19 16:21 Home Medications: Home Meds [place] Carbonate 900 mg PO DAILY 11/13/16 [History] Ibuprofen 600 mg PO TID PRN 06/14/17 [History] Lurasidone HCl [Latuda] 80 mg PO BID 06/14/17 [History] OLANZapine [Olanzapine] 20 mg PO BEDTIME 06/14/17 [History] OXcarbazepine [Oxcarbazepine] 900 mg PO BID 06/14/17 [History] Sofosbuvir/Velpatasvir [Epclusa 400 mg-100 mg Tablet] 100 - 400 mg PO DAILY [History] traZODone 150 mg PO BEDTIME MDD 300mg 06/14/17 [History] Bacitracin Zinc 1 each TP BID 06/10/19 [History] Ferrous Sulfate 325 mg PO DAILY 06/10/19 [History] Folic Acid 1 mg PO DAILY 06/10/19 [History] L.acidoph,Paracasei, B.lactis [Probiotic] 1 each PO DAILY 06/10/19 [History] Pantoprazole Sodium [Protonix] 40 mg PO DAILY 06/10/19 [History] Vit B12/Folic Acid/B6/Aa No.15 [Glycotrol] 1 each PO DAILY 06/10/19 [History] risperiDONE 3 mg PO DAILY 06/10/19 [History] Lactobacillus Acidophilus [Acidophilus] 1 cap PO 07/23/19 [History] Loperamide [Imodium] 2 mg PO QID 07/23/19 [History] Multivitamins/Min/Ca/FA/Iron [Thera-M] 1 tab PO DAILY 07/23/19 [History] PARoxetine [Paxil] 20 mg PO DAILY 07/23/19 [History] Zinc Sulfate [Zinc-220] 220 mg PO DAILY 07/23/19 [History] hydrOXYzine HCL [Hydroxyzine HCl] 50 mg PO MDD 100 07/23/19 [History] Past Medical History HEENT History: Reports: Other (See Below) Other HEENT History: recent ear infection Gastrointestinal History: Reports: Chronic Constipation, 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: Psychiatric History: Reports: Anxiety, Bipolar, Depression - Infectious Disease History Infectious Disease History: Reports: Hepatitis C - Past Surgical History Other HEENT Surgeries/Procedures: Patient not answering questions GI Surgical History: Reports: Bariatric Procedure Female Surgical History: Reports: Section Musculoskeletal Surgical History: Reports: Other (See Below) Social & Family History - Family History Family Medical History: Noncontributory - Caffeine Use Caffeine Use: Reports: None H&P Review of Systems - Review of Systems: Review Of Systems: Comprehensive ROS is negative, except as noted in HPI. Exam - Exam Exam: See Below - Exam General: Alert, Oriented, Cooperative HEENT: PERRLA, Conjunctiva Clear, EACs Clear, EOMI Neck: Supple, Trachea Midline Lungs: Clear to Auscultation, Normal Respiratory Effort Cardiovascular: Regular Rate, Regular Rhythm GI/Abdominal Exam: Normal Bowel Sounds, Soft, Non-Tender Extremities: Other (thin decreased muscle mass of all muscles) Skin: Dry, Intact Neuro Extensive - Mental Status: Alert, Oriented x3, Normal Mood/Affect Psychiatric: Alert, Normal Affect, Normal Mood - Problem List (1) Failure to thrive SNOMED Code(s): 54535956 ICD Code: [id number] - Status: Acute Priority: High Current Visit: Yes (2) Hypoalbuminemia due to protein-calorie malnutrition SNOMED Code(s): 15451757870611 ICD Code: E46 - UNSPECIFIED PROTEIN-CALORIE MALNUTRITION Status: Acute Priority: High Current Visit: Yes (3) Edema due to hypoalbuminemia SNOMED Code(s): 203138632 ICD Code: R60.9 - EDEMA, UNSPECIFIED; E88.09 - OTH DISORDERS OF PLASMA- PROTEIN METABOLISM, NEC Status: Acute Priority: High Current Visit: Yes (4) Cirrhosis of liver SNOMED Code(s): 38210988 ICD Code: K74.60 - UNSPECIFIED CIRRHOSIS OF LIVER Status: Acute Priority : High Current Visit: Yes Qualifiers: Hepatic cirrhosis type: unspecified hepatic cirrhosis Ascites presence: with ascites Qualified Code(s): K74.60 - Unspecified cirrhosis of liver; R18.8 - Other ascites Problem List Initiated/Reviewed/Updated: Yes Orders Last 24hrs: Active Orders 24 hr Category Date Time Status Patient Status [ADT] Routine ADT 07/23/19 10:22 Ordered Vital Signs [RC] Q4H Care 07/23/19 10:22 Ordered Heart Healthy Diet [DIET] Diet 07/23/19 Lunch Ordered Abdomen Pelvis w Cont [CT] Routine Exams 07/23/19 10:31 Ordered AMMONIA VENOUS [CHEM] Routine Lab 07/23/19 10:31 Ordered CBC WITH AUTO DIFF [HEME] AM Lab 07/24/19 05:11 Ordered CMV ABS IGG/IGM Routine Lab 07/23/19 10:33 Ordered COMPREHENSIVE METABOLIC PN,CMP [CHEM] AM Lab 07/24/19 05:11 Ordered COPPER, SERUM Routine Lab 07/24/19 05:11 Ordered PERIPH BLOOD SMEAR PATHOLOGIST [HEME] Routine Lab 07/23/19 10:32 Ordered ZINC, PLASMA OR SERUM Routine Lab 07/24/19 05:11 Ordered Albumin 25% 50 GM @ 100 MLS/HR(200ml) Med 07/23/19 10:29 Ordered Albumin 25% [Flexbumin 25%] 200 ml IV ONETIME Peripheral TPN [Total Parenteral Nutrition, Peripheral] Med 07/23/19 10:30 Ordered 1 ml IV Q24H Resuscitation Status Routine Resus Stat 07/23/19 10:22 Ordered Medication Orders Non-Formulary Medication (Total Parenteral Nutrition, Peripheral) 1 mls @ 90 mls/hr IV Q24H ROSEMARY; Protocol Stop: 07/25/19 10:31 Albumin Human (Flexbumin 25%) 200 mls @ 100 mls/hr IV ONETIME ONE Stop: 07/23/19 12:28 Assessment/Plan Comment:: Patient to be placed in observation for management of symptoms and diet. Patient has gotten extremely weak and thin. We will f/u with GI or other specialty as we are able to establish care.
[2019-07-23] MEDS ORDERED: Sodium Chloride 0.9% 50 ML SDV FLUSH ONE (12:28)
[2019-07-23] MEDS ORDERED: Iodixanol 652 MG/ML 100 ML Bottle IV ONE (12:30)
[2019-07-23] MEDS ORDERED: Diatrizoate Meglumine/Diatrizoate Sodium 37% 30 ML Bottle PO ONE (12:30)
--- NOTE | 2019-07-23 13:44 | CT ---
DATE OF SERVICE: 07/23/2019 CLINICAL DATA: Abdominal swelling and pain Enhanced abdomen and pelvic CT: Multislice acquisition through the abdomen and pelvis with both IV and oral contrast was performed. No priors. There is a small focus of increased density in the right middle lobe consistent with infiltrate or atelectasis. The lung bases are otherwise clear. There is a large amount of free fluid throughout the abdomen and pelvis consistent with ascites. The liver is normal size. There is mild diffuse fatty infiltration of the liver. It has slightly lobulated contour suggesting the possibility of cirrhosis. No focal hepatic lesions. The gallbladder is significantly distended. No calcified gallstones. There is mild intrahepatic biliary duct dilatation. The common bile duct is minimally dilated and measures 8 mm in diameter. The spleen is enlarged. It measures 15.0 cm in length. It is mildly heterogeneous in attenuation most likely related to the contrast bolus timing. The pancreas appears normal. No pancreatic duct dilatation. The right and left adrenals appear normal. The right and left kidneys appear normal and enhance symmetrically. No hydronephrosis or hydroureter. The bladder is fluid filled. It appears normal. There are surgical changes involving the stomach and GE junction region. No evidence of appendicitis. There is a moderate amount of stool noted within the descending and sigmoid colon. No dilated loops of bowel. There are multiple loops of small bowel within the abdomen with apparent mural thickening. This is probably related to nondistention. Enteritis should be considered. No free air. No dilated loops of bowel. No adenopathy. No aortic aneurysm or dissection. There is collateral circulation medial to the spleen suggesting the possibility of a portal hypertension. No other significant findings. MTDD
[2019-07-23] MEDS: Albumin 25% 50 ML IV SCH ×3 (13:45→14:48)
--- NOTE | 2019-07-23 14:53 | PCM.DCSUM1 ---
Discharge Summary - Discharge Data Discharge Date: 07/23/19 Discharge Disposition: DC/Tfer to Acute Hospital 02 Condition: Good - Referral to Home Health Primary Care Physician: PCP None - Discharge Diagnosis/Problem(s) (1) Failure to thrive SNOMED Code(s): 20637812 ICD Code: [id number] - Status: Acute Priority: High Current Visit: Yes Qualifiers: Failure to thrive age range: in adult Qualified Code(s): R62.7 - Adult failure to thrive (2) Hypoalbuminemia due to protein-calorie malnutrition SNOMED Code(s): 02480162567561 ICD Code: E46 - UNSPECIFIED PROTEIN-CALORIE MALNUTRITION Status: Acute Priority: High Current Visit: Yes (3) Edema due to hypoalbuminemia SNOMED Code(s): 770228496 ICD Code: R60.9 - EDEMA, UNSPECIFIED; E88.09 - OTH DISORDERS OF PLASMA- PROTEIN METABOLISM, NEC Status: Acute Priority: High Current Visit: Yes (4) Cirrhosis of liver SNOMED Code(s): 22426488 ICD Code: K74.60 - UNSPECIFIED CIRRHOSIS OF LIVER Status: Acute Priority : High Current Visit: Yes Qualifiers: Hepatic cirrhosis type: unspecified hepatic cirrhosis Ascites presence: with ascites Qualified Code(s): K74.60 - Unspecified cirrhosis of liver; R18.8 - Other ascites - Patient Instructions Activity: Rest and Relax Today - Discharge Plan Home Medications: Home Meds [place] Carbonate 900 mg PO DAILY 11/13/16 [History] Ibuprofen 600 mg PO TID PRN 06/14/17 [History] Lurasidone HCl [Latuda] 80 mg PO BID 06/14/17 [History] OLANZapine [Olanzapine] 20 mg PO BEDTIME 06/14/17 [History] OXcarbazepine [Oxcarbazepine] 900 mg PO BID 06/14/17 [History] Sofosbuvir/Velpatasvir [Epclusa 400 mg-100 mg Tablet] 100 - 400 mg PO DAILY [History] traZODone 150 mg PO BEDTIME MDD 300mg 06/14/17 [History] Bacitracin Zinc 1 each TP BID 06/10/19 [History] Ferrous Sulfate 325 mg PO DAILY 06/10/19 [History] Folic Acid 1 mg PO DAILY 06/10/19 [History] L.acidoph,Paracasei, B.lactis [Probiotic] 1 each PO DAILY 06/10/19 [History] Pantoprazole Sodium [Protonix] 40 mg PO DAILY 06/10/19 [History] Vit B12/Folic Acid/B6/Aa No.15 [Glycotrol] 1 each PO DAILY 06/10/19 [History] risperiDONE 3 mg PO DAILY 06/10/19 [History] Lactobacillus Acidophilus [Acidophilus] 1 cap PO 07/23/19 [History] Loperamide [Imodium] 2 mg PO QID 07/23/19 [History] Multivitamins/Min/Ca/FA/Iron [Thera-M] 1 tab PO DAILY 07/23/19 [History] PARoxetine [Paxil] 20 mg PO DAILY 07/23/19 [History] Zinc Sulfate [Zinc-220] 220 mg PO DAILY 07/23/19 [History] hydrOXYzine HCL [Hydroxyzine HCl] 50 mg PO MDD 100 07/23/19 [History] - Discharge Summary/Plan Comment DC Time >30 min.: No Discharge Summary/Plan Comment: Patient to be transferred to [facility] access hospital for further management of symptoms and specialist care for further workup and treatment of her condition. Patient agrees with plan and f/u as directed. - Patient Data Vitals - Most Recent: Last Vital Signs Temp 99 C H 07/23/19 10:22 Pulse 73 07/23/19 10:22 Resp 18 07/23/19 10:22 BP 108/76 07/23/19 10:22 Pulse Ox 100 07/23/19 10:22 Weight - Most Recent: 68 kg Lab Results - Last 24 hrs: Laboratory Results - last 24 hr 07/23/19 Range/Units 10:50 Ammonia < 10 L (11-32) umol/L Med Orders - Current: Current Medications Discontinued Medications Diatrizoate Meglum/Diatrizoate Sod (Gastrografin 37%) 30 ml PO ONETIME ONE Stop: 07/23/19 12:31 Last Admin: 07/23/19 11:10 Dose: 30 ml Non-Formulary Medication (Total Parenteral Nutrition, Peripheral) 1 mls @ 90 mls/hr IV Q24H ROSEMARY; Protocol Stop: 07/25/19 10:31 Albumin Human (Flexbumin 25%) 50 mls @ 100 mls/hr IV Q30M [place] Stop: 07/23/19 13:29 Last Admin: 07/23/19 14:48 Dose: 100 mls/hr Iodixanol (Visipaque 320) 100 ml IV ONETIME ONE Stop: 07/23/19 12:31 Last Admin: 07/23/19 12:38 Dose: 100 ml Sodium Chloride (Normal Saline) 50 ml FLUSH ONETIME ONE Stop: 07/23/19 12:29 Last Admin: 07/23/19 12:38 Dose: 50 ml
[2019-07-23] MEDS ORDERED: Lidocaine 5% 700 MG Patch TOP ONE (15:22)
[2019-07-23 15:34] VITALS: BP 117/83; PULSE 67
== END 2019-07-23 14:50 ==
LOC: LB.MS 10:15 → UNDOADMOB 10:15 → LB.MS 10:22
PROVIDERS: ADMIT Family Medicine; ATTEND Family Medicine
DX: R62.7 Adult failure to thrive (principal); E88.09 Other disorders of plasma-protein metabolism, not elsewhere classified; E46 Unspecified protein-calorie malnutrition; K74.60 Unspecified cirrhosis of liver; F41.9 Anxiety disorder, unspecified; F31.9 Bipolar disorder, unspecified; Z79.899 Other long term (current) drug therapy
CPT/HCPCS: 74177; 82140; 82525; 84630; 86644; 86645; 87070; 96365; 96366; 96376; A0425; A0429; A9270-GY; G0378; P9047; Q9963

== ENCOUNTER 2019-08-09 13:40 | Emergency (ER) | payer MEDICAID ==
[2019-08-09 14:05] VITALS: BP 121/84; PULSE 75
--- NOTE | 2019-08-09 18:03 | ER ---
REASON FOR EMERGENCY ROOM VISIT: Confusion. HISTORY: This unfortunate 43-year-old woman has had a number of serious chronic underlying health concerns which include chronic hepatitis C, malnutrition and failure to thrive as well as a history of polydrug abuse. She was at her father's house when she woke up after taking a nap this afternoon. She stated that she felt generally somewhat weak her, and she was initially somewhat disoriented. She made mention to her dad that it seemed like it was "Reina." She had a recent bout of bronchitis over the last week or two, but those symptoms had resolved. It should be noted that she was hospitalized at [facility] last March for sepsis and bilateral pneumonia as well as a parapharyngeal abscess. She states that she had a recent bone marrow biopsy at the [facility], the reason for which is not clear from evaluating the records available to me, but it could be due to her recent pancytopenia. Her father states that she does tend to exhibit inappropriate affect at times and that is not a new development. On careful questioning, she states that she did have a mild headache that only lasted a few minutes this morning. Other than that, she has felt fine. She denies any visual symptoms. She states her appetite is unchanged. She denies any swallowing difficulty or breathing difficulty, coughing, or wheezing. She denies any abdominal pain or diarrhea at this time. She denies any urinary symptoms. PAST MEDICAL HISTORY: Significant for the followin. Malnutrition and failure to thrive. 2. History of gastric bypass (recently considering reversing this surgically). 3. Hepatitis C. 4. History of anxiety, bipolar, and depression. 5. Gastric bypass. 6. Hypoalbuminemia. 7. Chronic lower extremity edema secondary to malnutrition. 8. History of polysubstance abuse including alcohol, marijuana, and methamphetamine. MEDICATIONS: Reviewed and the list is rather lengthy. Please see electronic medical record for details. They include the following, spironolactone, furosemide, hydroxyzine, Epclusa, oxcarbazepine, olanzapine, probiotics, vitamins and minerals, loperamide, pantoprazole, trazodone, Paxil, Latuda, and risperidone. ALLERGIES: NONE TO MEDICATIONS. FAMILY HISTORY: Noncontributory. REVIEW OF SYSTEMS: Pertinent positives and negatives as listed in the HPI. PHYSICAL EXAMINATION: GENERAL: She is alert, and at this time, she is oriented x3. She does seem to giggle and smile inappropriately at times but does answer questions appropriately. VITAL SIGNS: She is afebrile. Heart rate 75, blood pressure 121/84, respiratory rate 18, O2 saturations 100% on room air. HEENT: She looks generally rather pale with a sallow complexion. No conjunctivitis or scleral icterus is noted. Oropharynx is unremarkable. NECK: No masses. No JVD. CHEST: Clear to auscultation with good breath sounds bilaterally. CARDIAC: Regular rate without murmur. ABDOMEN: Scaphoid, soft, and nontender. No hepatosplenomegaly or palpable mass. EXTREMITIES: She does have moderate bilateral lower extremity edema. Her feet are pink and warm. NEUROLOGIC: Her muscle strength, bulk, and tone are normal and symmetrical bilaterally. Cranial nerves 2 through 12 are intact. Deep tendon reflexes are symmetrical. Sensation is normal to crude touch. LABORATORY AND X-RAY DATA: Her chest x-ray is normal with no evidence of active pulmonary disease. She may have a couple of areas of small platelike atelectasis on the right side but no infiltrates. Her CBC shows what appears to be a pancytopenia-type picture with a WBC of 2.3, hemoglobin of 9.7, and a platelet count of 92,000. Her CMP shows that her electrolytes are normal. Her creatinine and renal function are normal. She does have mild albeit chronic transaminase elevations with an AST of 84 and an ALT of 86. Her alkaline phosphatase is mildly elevated at 161. Her ammonia is less than 10. Her albumin is 2.3 (previously, it was 2.0). Her calcium is low but appropriate when her albumin level is taken into account. Her urinalysis is normal. Urine drug screen was positive for tricyclics and THC. IMPRESSION: 1. Recent bout of disorientation, improved, etiology unclear, but possibly related to marijuana use. 2. Malnutrition with hypoalbuminemia and failure to thrive. 3. Hepatitis C, chronic. 4. History of gastric bypass. PLAN: At this point, I did not make any specific recommendations other than to make sure that she follows up with her provider, Dr. Tanner, who knows her much better. I cautioned her about the use of marijuana. They are going to discuss the possibility of reversing her gastric bypass because of her dire nutritional status. The other concern of course is her pancytopenia and the biopsy results from that are currently unavailable, so that will have to be taken into consideration. All these were discussed with the patient and her father (per her request). They understand and agree. All questions were answered. YARELIS /[id number]
--- NOTE | 2019-08-10 08:51 | CR ---
DATE OF SERVICE: 08/09/2019 CLINICAL DATA: confusion PA AND LATERAL CHEST: Comparison is made to a prior exam dated 03/31/19. The heart size is normal. The lungs are clear. No pneumothorax. No pleural effusions. No evidence of acute intrathoracic disease. [id number] [facility]
== END 2019-08-09 15:45 | disposition home or self-care (01) ==
LOC: LB.ED 13:40
DX: R41.0 Disorientation, unspecified (principal); E46 Unspecified protein-calorie malnutrition; E88.09 Other disorders of plasma-protein metabolism, not elsewhere classified; R62.7 Adult failure to thrive; Z68.1 Body mass index [BMI] 19.9 or less, adult; K73.9 Chronic hepatitis, unspecified; Z86.19 Personal history of other infectious and parasitic diseases
CPT/HCPCS: 36415; 71046; 80053; 80307; 81003; 82140; 85025; 99282; 99285-25

== ENCOUNTER 2019-08-17 11:08 | Emergency (ER) | payer MEDICAID ==
[2019-08-17 11:25] VITALS: BP 147/102; PULSE 96
[2019-08-17] MEDS ORDERED: traMADol 50 MG Tab ONE (11:30)
[2019-08-17] MEDS ORDERED: Ondansetron 4 MG Tab.DIS ONE (11:30)
--- NOTE | 2019-08-17 16:40 | EDM.PDOC ---
ED HPI GENERAL MEDICAL PROBLEM - General Chief Complaint: General Stated Complaint: abdominal pain Time Seen by Provider: 08/17/19 11:30 Source of Information: Reports: Patient History Limitations: Reports: No Limitations - History of Present Illness INITIAL COMMENTS - FREE TEXT/NARRATIVE: This is a 44yo F here for epigastric discomfort. She notes bloating and fullness. She has a history of liver failure with prior ascites and paracentesis. She states she is 2 points away from being on the transplant list at [facility]. Patient denies any fever or chills. She notes she is eating well. Onset: Gradual Duration: Day(s): Location: Reports: Abdomen Quality: Reports: Pressure Severity: Moderate Associated Symptoms: Reports: No Other Symptoms Epigastric Pain Score (Numeric/FACES): 8 - Related Data Allergies Allergy/AdvReac Type Severity Reaction Status Date / Time No Known Allergies Allergy Verified 08/17/19 11:25 Home Meds: Home Meds Lurasidone HCl [Latuda] 80 mg PO BID 06/14/17 [History] OLANZapine [Olanzapine] 20 mg PO BEDTIME 06/14/17 [History] OXcarbazepine [Oxcarbazepine] 900 mg PO BID 06/14/17 [History] Sofosbuvir/Velpatasvir [Epclusa 400 mg-100 mg Tablet] 100 - 400 mg PO DAILY [History] traZODone 150 mg PO BEDTIME MDD 300mg 06/14/17 [History] Bacitracin Zinc 1 each TP BID 06/10/19 [History] Ferrous Sulfate 325 mg PO DAILY 06/10/19 [History] Folic Acid 1 mg PO DAILY 06/10/19 [History] L.acidoph,Paracasei, B.lactis [Probiotic] 1 each PO DAILY 06/10/19 [History] Pantoprazole Sodium [Protonix] 40 mg PO DAILY 06/10/19 [History] Vit B12/Folic Acid/B6/Aa No.15 [Glycotrol] 1 each PO DAILY 06/10/19 [History] risperiDONE 4 mg PO DAILY 06/10/19 [History] Lactobacillus Acidophilus [Acidophilus] 1 cap PO DAILY 07/23/19 [History] Loperamide [Imodium] 2 mg PO QID 07/23/19 [History] Multivitamins/Min/Ca/FA/Iron [Thera-M] 1 tab PO DAILY 07/23/19 [History] PARoxetine [Paxil] 20 mg PO DAILY 07/23/19 [History] Zinc Sulfate [Zinc-220] 220 mg PO DAILY 07/23/19 [History] hydrOXYzine HCL [Hydroxyzine HCl] 50 mg PO BID MDD 100 07/23/19 [History] Furosemide 40 mg PO DAILY 08/09/19 [History] Spironolactone [Aldactone] 100 mg PO DAILY 08/09/19 [History] Past Medical History HEENT History: Reports: Other (See Below) Other HEENT History: recent ear infection Cardiovascular History: Reports: None Respiratory History: Reports: None Gastrointestinal History: Reports: Chronic Constipation, Hepatitis Genitourinary History: Reports: None 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: Musculoskeletal History: Reports: None Neurological History: Reports: Neuropathy, Peripheral Other Neuro History: Numbness/tingling over past month Psychiatric History: Reports: Anxiety, Bipolar, Depression Endocrine/Metabolic History: Reports: None Hematologic History: Reports: B12 Deficiency - Infectious Disease History Infectious Disease History: Reports: Hepatitis C - Past Surgical History Other HEENT Surgeries/Procedures: Patient not answering questions Cardiovascular Surgical History: Reports: None Respiratory Surgical History: Reports: None GI Surgical History: Reports: Bariatric Procedure Female Surgical History: Reports: Section Endocrine Surgical History: Reports: None Musculoskeletal Surgical History: Reports: Other (See Below) Oncologic Surgical History: Reports: None Social & Family History - Family History Family Medical History: Noncontributory - Tobacco Use Smoking Status *Q: Light Tobacco Smoker Years of Tobacco use: 20 Packs/Tins Daily: 0.2 - Caffeine Use Caffeine Use: Reports: None - Recreational Drug Use Recreational Drug Use: Yes Recreational Drug Type: Reports: Marijuana/Hashish ED ROS GENERAL - Review of Systems Review Of Systems: Comprehensive ROS is negative, except as noted in HPI. ED EXAM, GENERAL - Physical Exam Exam: See Below Exam Limited By: No Limitations General Appearance: Alert, No Apparent Distress, Thin, Cachetic Eye Exam: Bilateral Eye: EOMI, PERRL Nose: Normal Inspection Throat/Mouth: Normal Inspection Head: Atraumatic Neck: Normal Inspection Respiratory/Chest: No Respiratory Distress, Lungs Clear Cardiovascular: Normal Peripheral Pulses, Regular Rate, Rhythm GI/Abdominal: Abnormal Bowel Sounds, Other (tympanic throughout) Extremities: Normal Inspection Course - Vital Signs Last Recorded V/S: Last Vital Signs Temp 36.6 C 08/17/19 11:19 Pulse 96 08/17/19 11:19 Resp 20 08/17/19 11:19 BP 147/102 H 08/17/19 11:19 Pulse Ox 100 08/17/19 11:19 - Orders/Labs/Meds Meds: Medications Discontinued Medications Generic Name Dose Route Start Last Admin Trade Name Lissette PRN Reason Stop Dose Admin Ondansetron HCl 20 mg 08/17/19 11:30 Zofran Odt .ROUTE 08/17/19 11:31 .STK-MED ONE Tramadol HCl 500 mg 08/17/19 11:30 Ultram .ROUTE 08/17/19 11:31 .STK-MED ONE Departure - Departure Time of Disposition: 11:45 Disposition: Home, Self-Care 01 Condition: Good Clinical Impression: Abdominal bloating with cramps - Discharge Information Instructions: Abdominal Bloating Referrals: PCP,None [Primary Care Provider] - Forms: ED Department Discharge Additional Instructions: Discharge home. If the pain does not improve, come back in to the clinic. Tramadol 50mg 1 tablet by mouth every 6 hours as needed for pain. Ondansetron 4mg 1 tablet by mouth every 4 hours as needed for nausea. Walking up and down the stairs, crouching will help move the bowels. Follow up in the clinic. Sepsis Event Note - Evaluation Sepsis Screening Result: No Definite Risk - Focused Exam Vital Signs: Vital Signs Temp Pulse Resp BP Pulse Ox 08/17/19 11:19 36.6 C 96 20 147/102 H 100 08/17/19 11:17 92 126/91 H 08/17/19 11:12 36.6 C 96 20 147/102 H 100 Date Exam was Performed: 08/17/19 Time Exam was Performed: 16:35 - Problem List & Annotations (1) Abdominal bloating with cramps SNOMED Code(s): 469114162 Code(s): R14.0 - ABDOMINAL DISTENSION (GASEOUS); R10.9 - UNSPECIFIED ABDOMINAL PAIN Status: Acute Priority: High - Problem List Review Problem List Initiated/Reviewed/Updated: Yes - Assessment/Plan Plan: Counseled on supportive care and management. Discussed passing gas as patient normally passes a lot of gas but has not the past few days. She also has had harder stools. Discussed recent BM this am and patient will try to pass some gas and increase her BM. Discussed close monitoring and f/u if symptoms persist or worsen.
== END 2019-08-17 11:45 | disposition home or self-care (01) ==
LOC: LB.ED 11:08
DX: R14.0 Abdominal distension (gaseous) (principal); R10.13 Epigastric pain; F17.210 Nicotine dependence, cigarettes, uncomplicated; F31.9 Bipolar disorder, unspecified; F41.9 Anxiety disorder, unspecified; Z79.899 Other long term (current) drug therapy
CPT/HCPCS: 99283; A9270-GY

== ENCOUNTER 2019-08-22 13:33 | Emergency (ER) | payer MEDICAID ==
[2019-08-22] MEDS: Ondansetron 4 MG/2 ML SDV IVPUSH ONE (14:22)
[2019-08-22] MEDS: Sodium Chloride 0.9% 1,000 ML IV ONE (14:24)
[2019-08-22] MEDS: Pantoprazole 8 MG in Sodium Chloride 0.9% 100 ML IV SCH (15:20)
[2019-08-22] MEDS: Piperacillin/Tazobactam 2.25 GM in Sodium Chloride 0.9% 50 ML IV ONE (15:39)
[2019-08-22] MEDS: Morphine 2 MG/ML Syringe IVPUSH ONE (15:41)
[2019-08-22 15:46] VITALS: BP 116/81; PULSE 124
--- NOTE | 2019-08-22 16:12 | ER ---
HISTORY OF PRESENT ILLNESS: A 44-year-old lady, who comes in by ambulance with complaints of GI bleeding. She has been vomiting up blood, telling me that this has been going on for 2 or 3 days. She was actually seen in the clinic yesterday for the same complaint and lab work was done showing a hemoglobin of 11.1, white count was normal, electrolytes are normal. CT of the abdomen was obtained as well yesterday showing peritoneal fluid consistent with ascites; liver cirrhosis, which is not new; possible pancreatitis with a 5 cm mass in the pancreas. The patient states she has vomited 4 more times since yesterday, large amounts. She feels very weak and tired. She does have abdominal pain. She tells us that she feels like she is going to . The patient has extensive medical history that includes failure to thrive/malnutrition, history of gastric bypass, hepatitis C, history of anxiety, bipolar, and depression, and history of polysubstance abuse including alcohol, marijuana, and methamphetamine. OBJECTIVE: GENERAL APPEARANCE: The patient is awake, she is somewhat sleepy, but does answer questions appropriately. She is a little irritable. No respiratory distress at this time. VITAL SIGNS: Reviewed initially, blood pressure 106/86, pulse 132, she is afebrile, respirations 32, O2 sats are in the upper 90s. HEENT: Oral mucous membranes are dry. Tonsils are not enlarged or injected. Pharynx not inflamed. NECK: Supple. LUNGS: Reduced air exchange. I do not hear any rales, wheezes, or rhonchi. CARDIAC: Heart sounds distinct without murmurs. ABDOMEN: Soft, slightly protuberant. No pain is noted with light palpation. Bowel sounds are hypoactive. SKIN: Warm and dry. EMERGENCY DEPARTMENT COURSE: Initial workup, manager monitoring was hooked up showing a normal sinus rhythm. An IV was started and we started normal saline at 500 mL an hour plus we gave the patient Zofran 4 mg IV as soon as we could. She stated that this did help with her nausea. Labs today include a CBC showing hemoglobin again of 8.6 today, hematocrit 25.2, white count is normal at 5.4. Comprehensive metabolic program shows a potassium elevated at 5.4; yesterday, her potassium was at 4.3. Sodium 138, glucose 79, creatinine 1.33, BUN 17. Lactic acid is 7.21. Liver enzymes are slightly elevated, AST at 69. DIAGNOSES: 1. gastrointestinal bleed with anemia. 2. Early stage sepsis. 3. Hypotension. TREATMENT PLAN: The patient will be transferred to [place]. Arrangements will be made. She is going by fixed wing. I did consult with Dr. Mathew, hospitalist at [facility] in [place], who accepted the patient. She will be started on a Protonix drip in our facility. Her most recent blood pressure reading is 130/94, pulse 124, she is still afebrile, O2 sats are good. CRS/MODL /[id number]
== END 2019-08-22 16:36 ==
LOC: LB.ED 13:33
DX: A41.9 Sepsis, unspecified organism (principal); K92.2 Gastrointestinal hemorrhage, unspecified; D64.9 Anemia, unspecified; I95.9 Hypotension, unspecified
CPT/HCPCS: 36415; 51702; 80053; 83605; 85025; 86850; 86900; 86901; 96361; 96365; 96375; 99285; 99285-25; A0425; A0429; C9113; J2270; J2405; J2543; J7030; J7050

== ENCOUNTER 2019-08-27 16:21 | Inpatient (IN) | payer MEDICAID ==
[2019-08-27] MEDS ORDERED: HYDROmorphone/Normal Saline 15 MG/30 ML PCA IV SCH (17:00)
[2019-08-27] MEDS ORDERED: Tuberculin, PPD 5 Units/0.1 ML 1 ML MDV IDERM ONE (17:57)
[2019-08-27] MEDS ORDERED: Sodium Chloride 0.9% 250 ML IV SCH (20:45)
[2019-08-27] MEDS: Scopolamine 1.5 MG Transdermal Patch TRDERM SCH (21:00)
[2019-08-27] MEDS: LORazepam 2 MG/ML SDV IVPUSH PRN (22:09)
[2019-08-28] MEDS: LORazepam 2 MG/ML SDV IVPUSH PRN ×3 (04:25→21:25)
[2019-08-28] MEDS: Sodium Chloride 0.9% 500 ML IV SCH ×2 (05:00→21:08)
--- NOTE | 2019-08-28 15:50 | PCM.HP.2 ---
H&P History of Present Illness - General Date of Service: 08/27/19 Admit Problem/Dx: Admission Diagnosis/Problem Admission Diagnosis/Problem Palliative care Source of Information: Old Records History Limitations: Reports: Other (Comfort care) - History of Present Illness Initial Comments - Free Text/Narative: This is a 44yo F here for comfort cares. She was placed into comfort care at [facility] due to her deteriorating health. Family were present with palliative care to come to a consensus. Family would prefer that she be home for the rest of her comfort care. Onset of Symptoms: Reports: Unknown/Unsure Duration of Symptoms: Reports: Constant Location: Reports: Generalized - Related Data Allergies/Adverse Reactions: Allergies Allergy/AdvReac Type Severity Reaction Status Date / Time No Known Allergies Allergy Verified 08/27/19 17:57 Past Medical History HEENT History: Reports: Other (See Below) Other HEENT History: recent ear infection Cardiovascular History: Reports: None Respiratory History: Reports: None Gastrointestinal History: Reports: Hepatitis, Other (See Below) Other Gastrointestinal History: GI Bleed Genitourinary History: Reports: Urinary Incontinence 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: Musculoskeletal History: Reports: None Neurological History: Reports: Neuropathy, Peripheral Other Neuro History: Numbness/tingling over past month Psychiatric History: Reports: Anxiety, Bipolar, Depression Endocrine/Metabolic History: Reports: None Hematologic History: Reports: Anemia, B12 Deficiency, Blood Transfusion(s), Other (See Below) Other Hematologic History: Recent Transfusions of platelets and FFP Immunologic History: Reports: Immunosuppression Oncologic (Cancer) History: Reports: Pancreatic, Other (See Below) Other Oncologic History: Lesion/Cyst on pancreas - Infectious Disease History Infectious Disease History: Reports: Hepatitis C - Past Surgical History Other HEENT Surgeries/Procedures: Patient not answering questions Cardiovascular Surgical History: Reports: None Respiratory Surgical History: Reports: None GI Surgical History: Reports: Bariatric Procedure, Colonoscopy, EGD Female Surgical History: Reports: Section Endocrine Surgical History: Reports: None Musculoskeletal Surgical History: Reports: Other (See Below) Oncologic Surgical History: Reports: Other (See Below) Other Oncologic Surgeries/Procedures: Bone biopsy - to investigate cancer. Pt denies any positive results, and refuses to answer further questions Social & Family History - Family History Family Medical History: Noncontributory - Caffeine Use Caffeine Use: Reports: None - Recreational Drug Use Recreational Drug Use: Yes Recreational Drug Type: Reports: Methamphetamine H&P Review of Systems - Review of Systems: Review Of Systems: Comprehensive ROS is negative, except as noted in HPI. Exam - Exam Exam: See Below - Vital Signs Vital Signs: Last Vital Signs Temp 37.0 C 08/28/19 07:25 Pulse 107 H 08/28/19 07:25 Resp 16 08/28/19 07:25 BP 167/110 H 08/28/19 07:25 Pulse Ox 98 08/28/19 07:25 Weight: 66.395 kg - Exam Quality Assessment: Central Line/PICC, Urinary Catheter, Skin Breakdown General: Obtunded Lungs: Decreased Breath Sounds, Rales, Rhonchi Cardiovascular: Regular Rate, Regular Rhythm Skin: Other (right medial foot stage 1 ulcer; irritation of groin area, ) Neuro Extensive - Mental Status: Flexor Response to Pain, Withdraws to Pain Sepsis Event Note - Evaluation Sepsis Screening Result: No Definite Risk - Focused Exam Vital Signs: Vital Signs Temp Pulse Resp BP Pulse Ox 08/28/19 07:25 37.0 C 107 H 16 167/110 H 98 08/28/19 04:20 37.3 C 115 H 15 156/108 H 85 L Date Exam was Performed: 08/28/19 Time Exam was Performed: 15:45 - Problem List (1) Hepatic encephalopathy SNOMED Code(s): 89665687 ICD Code: K72.90 - HEPATIC FAILURE, UNSPECIFIED WITHOUT COMA Status: Acute Current Visit: Yes (2) Palliative care patient SNOMED Code(s): 428151713 ICD Code: Z51.5 - ENCOUNTER FOR PALLIATIVE CARE Status: Acute Current Visit: Yes (3) Comfort measures only status SNOMED Code(s): 60797600358628 ICD Code: Z51.5 - ENCOUNTER FOR PALLIATIVE CARE Status: Acute Current Visit: Yes (4) Pneumonia of both lower lobes SNOMED Code(s): 933969532, 724039181 ICD Code: J18.1 - LOBAR PNEUMONIA, UNSPECIFIED ORGANISM Status: Acute Current Visit: No (5) Respiratory failure SNOMED Code(s): 968052465 ICD Code: J96.90 - RESPIRATORY FAILURE, UNSP, UNSP W HYPOXIA OR HYPERCAPNIA Status: Acute Current Visit: No Problem List Initiated/Reviewed/Updated: Yes Orders Last 24hrs: Active Orders 24 hr Category Date Time Status Patient Status [ADT] Routine ADT 08/27/19 17:28 Active 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 Record [RC] Q2H Care 08/27/19 16:48 Active Vital Signs [RC] Q2HWA Care 08/27/19 16:48 Active Nothing Per Oral Diet [DIET] Diet 08/27/19 Dinner Ordered CULTURE MRSA SURVEY [RM] Routine Lab 08/27/19 21:14 Received HYDROmorphone/Normal Saline [Dilaudid 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 15 MG in NS Med 08/27/19 17:00 Active 30 ML] See Protocol IV ASDIRECTED LORazepam [Ativan] Med 08/27/19 16:46 Active 2 mg IVPUSH Q4H PRN Scopolamine [Transderm-Scop] Med 08/27/19 18:00 Active 1.5 mg TRDERM Q72H Sodium Chloride 0.9% [Normal Saline] 500 ml Med 08/28/19 05:21 Active IV ASDIRECTED Fecal Incontinence Device Application [OM.PC] Routine Oth 08/27/19 18:00 Ordered Pulse Oximetry Continuous Monitoring [OM.PC] Routine Oth 08/27/19 16:48 Ordered Resuscitation Status Routine Resus Stat 08/27/19 17:28 Ordered Medication Orders Hydromorphone HCl (Dilaudid Improvement Nurse 15 Mg In Ns 30 Ml) 0 mg IV ASDIRECTED ROSEMARY; Protocol Last Admin: 08/27/19 20:30 Dose: 0.5 mg Sodium Chloride (Normal Saline) 500 mls @ 30 mls/hr IV ASDIRECTED ROSEMARY Last Admin: 08/28/19 05:00 Dose: 30 mls/hr Lorazepam (Ativan) 2 mg IVPUSH Q4H PRN PRN Reason: Anxiety Last Admin: 08/28/19 09:49 Dose: 2 mg Admin: 08/28/19 04:25 Dose: 2 mg Admin: 08/27/19 22:09 Dose: 2 mg Scopolamine (Transderm-Scop) 1.5 mg TRDERM Q72H ROSEMARY Last Admin: 08/27/19 21:00 Dose: 1.5 mg Assessment/Plan Comment:: Patient admitted to swing bed for comfort cares. We will continue current pain management, and other supportive measures started from [place].
[2019-08-28] MEDS: HYDROmorphone/Normal Saline 15 MG/30 ML PCA IV SCH (19:24)
[2019-08-29] MEDS: LORazepam 2 MG/ML SDV IVPUSH PRN ×3 (02:15→19:26)
[2019-08-29 10:16] VITALS: BP 154/105
[2019-08-29] MEDS: Sodium Chloride 0.9% 500 ML IV SCH (14:25)
[2019-08-29] MEDS: HYDROmorphone/Normal Saline 15 MG/30 ML PCA IV SCH (18:46)
[2019-08-29] MEDS: Sodium Chloride 0.9% 10 ML Syringe FLUSH SCH (19:46)
[2019-08-30] MEDS: LORazepam 2 MG/ML SDV IVPUSH PRN ×6 (01:45→23:00)
[2019-08-30] MEDS: Sodium Chloride 0.9% 10 ML Syringe FLUSH SCH ×2 (10:39→20:00)
[2019-08-30 13:48] VITALS: PULSE 89
[2019-08-30] MEDS: HYDROmorphone/Normal Saline 15 MG/30 ML PCA IV SCH (16:21)
[2019-08-30] MEDS: Scopolamine 1.5 MG Transdermal Patch TRDERM SCH (18:08)
--- NOTE | 2019-08-31 08:44 | PCM.DCSUM1 ---
Discharge Summary - Discharge Data Discharge Date: 08/31/19 Discharge Disposition: 20 Condition: - Referral to Home Health Primary Care Physician: PCP None - Discharge Diagnosis/Problem(s) (1) Hepatic encephalopathy SNOMED Code(s): 01490422 ICD Code: K72.90 - HEPATIC FAILURE, UNSPECIFIED WITHOUT COMA Status: Acute (2) Palliative care patient SNOMED Code(s): 442409868 ICD Code: Z51.5 - ENCOUNTER FOR PALLIATIVE CARE Status: Acute (3) Comfort measures only status SNOMED Code(s): 98382901121585 ICD Code: Z51.5 - ENCOUNTER FOR PALLIATIVE CARE Status: Acute (4) Pneumonia of both lower lobes SNOMED Code(s): 200869770, 622495663 ICD Code: J18.1 - LOBAR PNEUMONIA, UNSPECIFIED ORGANISM Status: Acute (5) Respiratory failure SNOMED Code(s): 023535835 ICD Code: J96.90 - RESPIRATORY FAILURE, UNSP, UNSP W HYPOXIA OR HYPERCAPNIA Status: Acute - Discharge Plan - Discharge Summary/Plan Comment DC Time >30 min.: No Discharge Summary/Plan Comment: Patient on comfort cares passed peacefully at 0018hrs. Family notified and arrangements made. - Patient Data Vitals - Most Recent: Last Vital Signs Temp 36.6 C 08/30/19 13:47 Pulse 89 08/30/19 13:47 Resp 16 08/30/19 13:47 BP 154/105 H 08/29/19 09:00 Pulse Ox 93 L 08/30/19 13:47 Weight - Most Recent: 66.395 kg I&O - Last 24 hours: Intake & Output 08/30/19 08/31/19 08/31/19 22:59 06:59 14:59 Intake Total 360 Output Total 250 Balance 110 Med Orders - Current: Current Medications Discontinued Medications Hydromorphone HCl (Dilaudid [employer]ble [employer] Granite Polisher 15 Mg In Ns 30 Ml) 0 mg IV ASDIRECTED ROSEMARY; Protocol Last Admin: 08/27/19 20:30 Dose: 0.5 mg Hydromorphone HCl (Dilaudid [employer] Granite Polisher 15 Mg In Ns 30 Ml) 15 mg IV ASDIRECTED ROSEMARY; Protocol Last Admin: 08/30/19 16:21 Dose: 15 mg Sodium Chloride (Normal Saline) 250 mls @ 30 mls/hr IV ASDIRECTED ROSEMARY Last Admin: 08/27/19 20:30 Dose: 30 mls/hr Sodium Chloride (Normal Saline) 500 mls @ 30 mls/hr IV ASDIRECTED ROSEMARY Last Admin: 08/29/19 14:25 Dose: 30 mls/hr Lorazepam (Ativan) 2 mg IVPUSH Q4H PRN PRN Reason: Anxiety Last Admin: 08/30/19 23:00 Dose: 2 mg Scopolamine (Transderm-Scop) 1.5 mg TRDERM Q72H [facility] Last Admin: 08/30/19 18:08 Dose: 1.5 mg Sodium Chloride (Saline Flush) 10 ml FLUSH BID [facility] Last Admin: 08/30/19 20:00 Dose: 10 ml Tuberculin PPD (Aplisol) 5 unit IDERM ONETIME ONE Stop: 08/27/19 17:58
== END 2019-08-31 03:17 | disposition expired | DRG 951 ==
LOC: LB.MS 16:21 → UNDOADMIN 16:21 → LB.MS 16:22
PROVIDERS: ADMIT Family Medicine; ATTEND Family Medicine
DX: Z51.5 Encounter for palliative care (principal); J18.1 Lobar pneumonia, unspecified organism; J96.90 Respiratory failure, unspecified, unspecified whether with hypoxia or hypercapnia; F31.9 Bipolar disorder, unspecified; D64.9 Anemia, unspecified; F41.9 Anxiety disorder, unspecified; E53.8 Deficiency of other specified B group vitamins; G62.9 Polyneuropathy, unspecified; K72.90 Hepatic failure, unspecified without coma; D89.9 Disorder involving the immune mechanism, unspecified; Z66 Do not resuscitate; Z85.07 Personal history of malignant neoplasm of pancreas; Z98.890 Other specified postprocedural states; Z86.19 Personal history of other infectious and parasitic diseases
CPT/HCPCS: A0425; A0429; A9270-GY; J1170; J2060; J7050